=== PATIENT | male | born 1950 | race Caucasian/White ===

== ENCOUNTER 2023-03-09 16:02 | Inpatient (IN) ==
[2023-03-09 17:54] LABS: ABS Eosinophils 0.3 10^3/uL (0.0-0.5); ABS Lymphocytes 0.5 10^3/uL (1.0-4.8); ABS Neutrophils 4.5 10^3/uL (1.5-7.6); ABS Nucleated RBC 0.01 10^3/ul; Eosinophil % 4.6 %; Hematocrit 33.7 % (38-53); Hemoglobin 10.9 g/dL (13.2-16.3); Lymphocyte % 7.5 %; Mean Corpuscular Hemoglobin 30.7 pg (27-33); Mean Corpuscular Hgb Conc 32.4 g/dL (31-36); Mean Corpuscular Volume 94.6 fL (80-97); Mean Platelet Volume 8.1 fL (7.5-11.2); Nucleated Red Blood Cells % 0.1 %/100WBC (0.0-0.8); Platelet Count 377 10^3/uL (150-450); Red Blood Count 3.56 10^6/uL (4.06-5.63); White Blood Count 6.3 10^3/uL (3.6-10.2)
[2023-03-09 18:27] LABS: Albumin 3.6 g/dL (3.2-5.2); Albumin/Globulin Ratio 0.9 (1-3); C Reactive Protein 89.82 mg/L (<8.01); Calcium 9.1 mg/dL (8.6-10.3); Creatinine, Serum 1.54 mg/dL (0.67-1.17); Globulin 3.8 g/dL (2-4); Total Bilirubin 0.5 mg/dL (0.2-1.0); Total Protein 7.4 g/dL (6.4-8.9); eGFR CKD-EPI 46.8 (>60)
[2023-03-09 18:28] LABS: Potassium 4.1 mmol/L (3.5-5.0)
[2023-03-09] MEDS ORDERED: Furosemide 40 mg/4 ml IV VIAL IV SLOW PU ONE (20:18)
[2023-03-09 20:21] LABS: Magnesium 1.8 mg/dL (1.9-2.7)
[2023-03-09] MEDS ORDERED: Magnesium Sulfate 2 gm BAG 2 GM/50 ML BAG IVPB ONE (20:26)
[2023-03-09 20:47] LABS: HDL Cholesterol 49.9 mg/dL
[2023-03-09] MEDS ORDERED: Iodixanol (CONTRAST) 320 MG/ML 100 ML SDV IV ONE (21:18)
[2023-03-09] MEDS: Morphine 2 MG/ML SYRINGE IV PRN (21:52)
[2023-03-09] MEDS ORDERED: ceFAZolin 1 GM in Dextrose 1 GM/50 ML BAG IVPB SCH (22:00)
[2023-03-09 22:19] LABS: Erythrocyte Sed Rate 99 mm/Hr (0-19)
[2023-03-09 22:45] LABS: Urine Appearance Clear; Urine Bilirubin Negative (Negative); Urine Blood Negative (Negative); Urine Color Yellow; Urine Glucose Negative (Negative); Urine Ketones Negative (Negative); Urine Nitrite Negative (Negative); Urine Protein 1+(30 mg/dL) (Negative); Urine Specific Gravity 1.013 (1.002-1.030); Urine Urobilinogen Negative (Negative)
[2023-03-09 22:53] LABS: Urine Bacteria Absent (Absent); Urine Red Blood Cell Trace(0-2/hpf) (Absent); Urine White Blood Cell 1+(6-10/hpf) (Absent)
[2023-03-09] MEDS: ceFAZolin 1 GM Q8H (ADVAN) IVPB SCH (23:13)
[2023-03-10 01:38] LABS: Ferritin 58.1 ng/mL (24-336)
[2023-03-10 01:42] LABS: Folate 10.99 ng/mL (5.90-24.80)
[2023-03-10] MEDS: Morphine 2 MG/ML SYRINGE IV PRN ×6 (02:00→23:45)
[2023-03-10] MEDS ORDERED: Ferric Gluconate IV 250 MG in NS 0.9% 250 ml 200 ML IVPB ONE (06:11)
[2023-03-10] MEDS: ceFAZolin 1 GM Q8H (ADVAN) IVPB SCH ×4 (06:40→23:45)
[2023-03-10] MEDS ORDERED: Furosemide 40 mg/4 ml IV VIAL IV ONE (08:31)
[2023-03-10 09:00] LABS: ABS Basophils 0.1 10^3/uL (0.0-0.1); ABS Eosinophils 0.2 10^3/uL (0.0-0.5); ABS Lymphocytes 0.4 10^3/uL (1.0-4.8); ABS Monocytes 1.3 10^3/uL (0.0-1.1); ABS Neutrophils 4.8 10^3/uL (1.5-7.6); Eosinophil % 3.2 %; Hematocrit 34.2 % (38-53); Hemoglobin 11.3 g/dL (13.2-16.3); Mean Corpuscular Hgb Conc 32.9 g/dL (31-36); Nucleated Red Blood Cells % 0.1 %/100WBC (0.0-0.8); Platelet Count 398 10^3/uL (150-450); Red Blood Count 3.64 10^6/uL (4.06-5.63); Red Cell Distribution Width 17.3 % (12-17); White Blood Count 6.8 10^3/uL (3.6-10.2)
[2023-03-10 09:17] LABS: Creatinine, Serum 1.81 mg/dL (0.67-1.17); Potassium 4.2 mmol/L (3.5-5.0); eGFR CKD-EPI 38.5 (>60)
[2023-03-10] MEDS ORDERED: Furosemide 40 mg/4 ml IV VIAL IV SLOW PU ONE ×2 (10:18→16:50)
[2023-03-10] MEDS ORDERED: Sulfur Hexaflouride MICROSPHR 25 MG VIAL ONE (10:38)
[2023-03-11] MEDS: Morphine 2 MG/ML SYRINGE IV PRN ×5 (05:02→23:01)
[2023-03-11 07:06] LABS: ABS Eosinophils 0.2 10^3/uL (0.0-0.5); ABS Lymphocytes 0.4 10^3/uL (1.0-4.8); ABS Monocytes 1.2 10^3/uL (0.0-1.1); ABS Neutrophils 5.1 10^3/uL (1.5-7.6); Eosinophil % 3.1 %; Hematocrit 32.5 % (38-53); Hemoglobin 10.7 g/dL (13.2-16.3); Lymphocyte % 5.5 %; Mean Corpuscular Hemoglobin 30.9 pg (27-33); Mean Corpuscular Hgb Conc 32.8 g/dL (31-36); Nucleated Red Blood Cells % 0.1 %/100WBC (0.0-0.8); Platelet Count 360 10^3/uL (150-450); Red Blood Count 3.46 10^6/uL (4.06-5.63); Red Cell Distribution Width 16.9 % (12-17); White Blood Count 6.9 10^3/uL (3.6-10.2)
[2023-03-11 07:55] LABS: Calcium 9.2 mg/dL (8.6-10.3); Creatinine, Serum 1.7 mg/dL (0.67-1.17); Magnesium 1.8 mg/dL (1.9-2.7); Potassium 3.8 mmol/L (3.5-5.0); eGFR CKD-EPI 41.5 (>60)
[2023-03-11] MEDS ORDERED: Furosemide 40 mg/4 ml IV VIAL IV ONE (07:57)
[2023-03-11] MEDS ORDERED: Potassium Chlor 20 meq TAB.ER PO ONE (07:58)
[2023-03-11] MEDS ORDERED: Magnesium Sulfate 2 gm BAG 2 GM/50 ML BAG IVPB ONE (07:58)
[2023-03-11] MEDS: ceFAZolin 1 GM Q8H (ADVAN) IVPB SCH ×3 (08:35→23:01)
[2023-03-11] MEDS ORDERED: Furosemide 40 mg/4 ml IV VIAL IV SLOW PU ONE ×2 (14:00→16:20)
[2023-03-12] MEDS: Morphine 2 MG/ML SYRINGE IV PRN ×4 (07:35→23:17)
[2023-03-12 07:45] LABS: ABS Eosinophils 0.3 10^3/uL (0.0-0.5); ABS Lymphocytes 0.5 10^3/uL (1.0-4.8); ABS Monocytes 1.2 10^3/uL (0.0-1.1); ABS Neutrophils 4.3 10^3/uL (1.5-7.6); ABS Nucleated RBC 0.01 10^3/ul; Eosinophil % 4.1 %; Hematocrit 33.4 % (38-53); Hemoglobin 10.9 g/dL (13.2-16.3); Lymphocyte % 7.3 %; Mean Corpuscular Hemoglobin 30.6 pg (27-33); Mean Corpuscular Hgb Conc 32.5 g/dL (31-36); Mean Corpuscular Volume 94.2 fL (80-97); Mean Platelet Volume 8.4 fL (7.5-11.2); Nucleated Red Blood Cells % 0.1 %/100WBC (0.0-0.8); Platelet Count 335 10^3/uL (150-450); Red Blood Count 3.55 10^6/uL (4.06-5.63); Red Cell Distribution Width 16.8 % (12-17); White Blood Count 6.3 10^3/uL (3.6-10.2)
[2023-03-12 08:04] LABS: Calcium 9.3 mg/dL (8.6-10.3); Creatinine, Serum 1.87 mg/dL (0.67-1.17); Magnesium 2.2 mg/dL (1.9-2.7); Potassium 3.8 mmol/L (3.5-5.0)
[2023-03-12] MEDS: ceFAZolin 1 GM Q8H (ADVAN) IVPB SCH ×3 (08:22→23:26)
[2023-03-12] MEDS ORDERED: Potassium Chlor 20 meq TAB.ER PO ONE (08:31)
[2023-03-12] MEDS ORDERED: Furosemide 40 mg/4 ml IV VIAL IV SLOW PU ONE ×3 (11:57→17:35)
[2023-03-12 16:51] LABS: Calcium 9.4 mg/dL (8.6-10.3); Creatinine, Serum 1.85 mg/dL (0.67-1.17); Potassium 4.5 mmol/L (3.5-5.0); eGFR CKD-EPI 37.5 (>60)
[2023-03-13 06:23] LABS: ABS Eosinophils 0.2 10^3/uL (0.0-0.5); ABS Lymphocytes 0.4 10^3/uL (1.0-4.8); ABS Monocytes 1.1 10^3/uL (0.0-1.1); ABS Neutrophils 3.9 10^3/uL (1.5-7.6); Eosinophil % 4.3 %; Hemoglobin 10.6 g/dL (13.2-16.3); Lymphocyte % 7.4 %; Mean Corpuscular Hemoglobin 30.8 pg (27-33); Mean Corpuscular Volume 93.3 fL (80-97); Mean Platelet Volume 8.3 fL (7.5-11.2); Nucleated Red Blood Cells % 0.1 %/100WBC (0.0-0.8); Platelet Count 375 10^3/uL (150-450); Red Blood Count 3.43 10^6/uL (4.06-5.63); Red Cell Distribution Width 16.8 % (12-17); White Blood Count 5.8 10^3/uL (3.6-10.2)
[2023-03-13 06:40] LABS: Calcium 9.2 mg/dL (8.6-10.3); Creatinine, Serum 2.05 mg/dL (0.67-1.17); Potassium 3.8 mmol/L (3.5-5.0); eGFR CKD-EPI 33.2 (>60)
[2023-03-13] MEDS ORDERED: Bumetanide IV 0.25 MG/ML 4 ml VIAL (1 mg) IV SLOW PU SCH (09:00)
[2023-03-13] MEDS: ceFAZolin 1 GM Q8H (ADVAN) IVPB SCH ×3 (09:24→23:18)
[2023-03-13] MEDS: Morphine 2 MG/ML SYRINGE IV PRN ×3 (10:58→23:18)
[2023-03-13] MEDS ORDERED: Senna TAB 8.6 mg TAB PO PRN (12:07)
[2023-03-13] MEDS ORDERED: Magnesium Hydroxide LIQ 30 ML UDC PO PRN (12:07)
[2023-03-13] MEDS ORDERED: Polyethylene Glycol 3350 17 GM PACKET PO PRN (12:07)
[2023-03-13] MEDS: Magnesium Hydroxide LIQ 30 ML UDC PO SCH (20:15)
[2023-03-14 05:50] LABS: Hemoglobin 10.2 g/dL (13.2-16.3); Mean Corpuscular Hemoglobin 30.5 pg (27-33); Mean Corpuscular Hgb Conc 32.7 g/dL (31-36); Mean Corpuscular Volume 93.2 fL (80-97); Mean Platelet Volume 7.8 fL (7.5-11.2); Platelet Count 391 10^3/uL (150-450); Red Blood Count 3.33 10^6/uL (4.06-5.63); Red Cell Distribution Width 16.7 % (12-17); White Blood Count 6.1 10^3/uL (3.6-10.2)
[2023-03-14 06:10] LABS: Calcium 9.3 mg/dL (8.6-10.3); Creatinine, Serum 2.05 mg/dL (0.67-1.17); Potassium 3.8 mmol/L (3.5-5.0); eGFR CKD-EPI 33.2 (>60)
[2023-03-14] MEDS: ceFAZolin 1 GM Q8H (ADVAN) IVPB SCH ×2 (08:59→17:15)
[2023-03-14] MEDS: Magnesium Hydroxide LIQ 30 ML UDC PO SCH ×2 (09:00→21:09)
[2023-03-14] MEDS: Morphine 2 MG/ML SYRINGE IV PRN (21:09)
[2023-03-14] MEDS: Bumetanide IV 0.25 MG/ML 4 ml VIAL (1 mg) IV SLOW PU SCH (21:09)
[2023-03-15] MEDS: ceFAZolin 1 GM Q8H (ADVAN) IVPB SCH ×2 (01:07→07:36)
[2023-03-15] MEDS: Morphine 2 MG/ML SYRINGE IV PRN ×3 (01:08→15:10)
[2023-03-15 06:51] LABS: ABS Eosinophils 0.2 10^3/uL (0.0-0.5); ABS Lymphocytes 0.4 10^3/uL (1.0-4.8); ABS Neutrophils 4.8 10^3/uL (1.5-7.6); Eosinophil % 3.5 %; Hematocrit 32.2 % (38-53); Hemoglobin 10.7 g/dL (13.2-16.3); Lymphocyte % 5.5 %; Mean Corpuscular Hemoglobin 30.9 pg (27-33); Mean Corpuscular Hgb Conc 33.1 g/dL (31-36); Mean Corpuscular Volume 93.3 fL (80-97); Mean Platelet Volume 8.1 fL (7.5-11.2); Platelet Count 386 10^3/uL (150-450); Red Blood Count 3.45 10^6/uL (4.06-5.63); Red Cell Distribution Width 16.7 % (12-17); White Blood Count 6.5 10^3/uL (3.6-10.2)
[2023-03-15] MEDS: Bumetanide IV 0.25 MG/ML 4 ml VIAL (1 mg) IV SLOW PU SCH ×2 (07:30→21:45)
[2023-03-15 07:35] LABS: Calcium 9.4 mg/dL (8.6-10.3); Creatinine, Serum 2.09 mg/dL (0.67-1.17); Magnesium 2.2 mg/dL (1.9-2.7); Potassium 3.7 mmol/L (3.5-5.0); eGFR CKD-EPI 32.4 (>60)
[2023-03-15] MEDS: Magnesium Hydroxide LIQ 30 ML UDC PO SCH ×2 (07:35→21:45)
[2023-03-15] MEDS: ceFAZolin 1 GM in Dextrose 1 GM/50 ML BAG IVPB SCH (16:12)
[2023-03-16] MEDS: ceFAZolin 1 GM in Dextrose 1 GM/50 ML BAG IVPB SCH ×3 (00:35→16:28)
[2023-03-16 05:59] LABS: Hemoglobin 10.6 g/dL (13.2-16.3); Mean Corpuscular Hemoglobin 30.7 pg (27-33); Mean Corpuscular Volume 93.1 fL (80-97); Mean Platelet Volume 7.8 fL (7.5-11.2); Platelet Count 406 10^3/uL (150-450); Red Blood Count 3.44 10^6/uL (4.06-5.63); Red Cell Distribution Width 16.7 % (12-17); White Blood Count 7.8 10^3/uL (3.6-10.2)
[2023-03-16 06:47] LABS: Calcium 9.5 mg/dL (8.6-10.3); Creatinine, Serum 2.25 mg/dL (0.67-1.17); Magnesium 2.3 mg/dL (1.9-2.7); Potassium 3.6 mmol/L (3.5-5.0); eGFR CKD-EPI 29.7 (>60)
[2023-03-16] MEDS: Magnesium Hydroxide LIQ 30 ML UDC PO SCH ×2 (08:24→20:26)
[2023-03-16] MEDS: Bumetanide IV 0.25 MG/ML 4 ml VIAL (1 mg) IV SLOW PU SCH ×2 (08:24→20:26)
[2023-03-16 16:55] LABS: Myeloperoxidase Antibody <0.2 U; Proteinase 3 <0.2 U
[2023-03-17 06:22] LABS: ABS Eosinophils 0.2 10^3/uL (0.0-0.5); ABS Lymphocytes 0.5 10^3/uL (1.0-4.8); ABS Monocytes 1.2 10^3/uL (0.0-1.1); ABS Neutrophils 5.6 10^3/uL (1.5-7.6); ABS Nucleated RBC 0.01 10^3/ul; Eosinophil % 3.2 %; Hematocrit 32.1 % (38-53); Hemoglobin 10.7 g/dL (13.2-16.3); Lymphocyte % 6.2 %; Mean Corpuscular Hemoglobin 30.9 pg (27-33); Mean Corpuscular Hgb Conc 33.3 g/dL (31-36); Mean Corpuscular Volume 92.7 fL (80-97); Mean Platelet Volume 7.9 fL (7.5-11.2); Nucleated Red Blood Cells % 0.2 %/100WBC (0.0-0.8); Platelet Count 402 10^3/uL (150-450); Red Blood Count 3.46 10^6/uL (4.06-5.63); Red Cell Distribution Width 16.5 % (12-17); White Blood Count 7.6 10^3/uL (3.6-10.2)
[2023-03-17 06:43] LABS: Anion Gap 12 mmol/L (2-16); Blood Urea Nitrogen 41 mg/dL (6-24); C Reactive Protein 115.55 mg/L (<8.01); CO2 Carbon Dioxide 33 mmol/L (22-32); Calcium 9.4 mg/dL (8.6-10.3); Chloride 88 mmol/L (101-111); Creatinine, Serum 2.33 mg/dL (0.67-1.17); Glucose 91 mg/dL (70-100); Potassium 3.2 mmol/L (3.5-5.0); Sodium 133 mmol/L (135-145); eGFR CKD-EPI 28.4 (>60)
[2023-03-17 06:45] LABS: ALT < 3 U/L (7-52); AST 13 U/L (13-39); Albumin 3.4 g/dL (3.2-5.2); Albumin/Globulin Ratio 0.8 (1-3); Alkaline Phosphatase 125 U/L (35-149); Globulin 4.3 g/dL (2-4); Magnesium 2.3 mg/dL (1.9-2.7); Total Bilirubin 0.5 mg/dL (0.2-1.0); Total Protein 7.7 g/dL (6.4-8.9)
[2023-03-17] MEDS ORDERED: Potassium Chlor 20 meq TAB.ER PO ONE ×2 (07:49→21:00)
[2023-03-17] MEDS: Bumetanide IV 0.25 MG/ML 4 ml VIAL (1 mg) IV SLOW PU SCH ×2 (08:25→20:29)
[2023-03-17] MEDS: Magnesium Hydroxide LIQ 30 ML UDC PO SCH ×2 (08:26→20:29)
[2023-03-17 09:54] LABS: Albumin 2.7 g/dL (3.4-4.7); Flag, M-protein Isotype Negative (Negative)
[2023-03-18 06:00] LABS: ABS Eosinophils 0.3 10^3/uL (0.0-0.5); ABS Lymphocytes 0.4 10^3/uL (1.0-4.8); ABS Monocytes 1.2 10^3/uL (0.0-1.1); ABS Neutrophils 5.8 10^3/uL (1.5-7.6); ABS Nucleated RBC 0.02 10^3/ul; Eosinophil % 3.3 %; Hematocrit 32.2 % (38-53); Hemoglobin 10.7 g/dL (13.2-16.3); Lymphocyte % 5.6 %; Mean Corpuscular Hemoglobin 30.8 pg (27-33); Mean Corpuscular Hgb Conc 33.2 g/dL (31-36); Mean Corpuscular Volume 92.7 fL (80-97); Mean Platelet Volume 8.1 fL (7.5-11.2); Nucleated Red Blood Cells % 0.3 %/100WBC (0.0-0.8); Platelet Count 390 10^3/uL (150-450); Red Blood Count 3.48 10^6/uL (4.06-5.63); Red Cell Distribution Width 16.3 % (12-17); White Blood Count 7.8 10^3/uL (3.6-10.2)
[2023-03-18 06:18] LABS: Calcium 9.5 mg/dL (8.6-10.3); Creatinine, Serum 2.46 mg/dL (0.67-1.17); Magnesium 2.3 mg/dL (1.9-2.7); Potassium 3.5 mmol/L (3.5-5.0); eGFR CKD-EPI 26.6 (>60)
[2023-03-18] MEDS ORDERED: Potassium Chlor 20 meq TAB.ER PO ONE (06:58)
[2023-03-18] MEDS ORDERED: Bumetanide IV 0.25 MG/ML 4 ml VIAL (1 mg) IV SLOW PU ONE ×2 (09:14→14:13)
[2023-03-18] MEDS: Bumetanide IV 0.25 MG/ML 4 ml VIAL (1 mg) IV SLOW PU SCH ×2 (11:44→20:34)
[2023-03-18 15:23] LABS: NT-Pro B-Type Natriuretic Pep 195 pg/mL (<=540)
[2023-03-18 15:25] LABS: Kappa Free Light Chain 12.8 mg/dL; Lambda Free Light Chain, S 10.1 mg/dL
[2023-03-19 07:12] LABS: ABS Eosinophils 0.3 10^3/uL (0.0-0.5); ABS Lymphocytes 0.6 10^3/uL (1.0-4.8); ABS Monocytes 1.1 10^3/uL (0.0-1.1); ABS Neutrophils 5.6 10^3/uL (1.5-7.6); ABS Nucleated RBC 0.01 10^3/ul; Eosinophil % 4.4 %; Hematocrit 32.2 % (38-53); Hemoglobin 10.4 g/dL (13.2-16.3); Lymphocyte % 7.3 %; Mean Corpuscular Hemoglobin 29.9 pg (27-33); Mean Corpuscular Hgb Conc 32.3 g/dL (31-36); Mean Corpuscular Volume 92.6 fL (80-97); Mean Platelet Volume 8.3 fL (7.5-11.2); Nucleated Red Blood Cells % 0.1 %/100WBC (0.0-0.8); Platelet Count 391 10^3/uL (150-450); Red Blood Count 3.47 10^6/uL (4.06-5.63); Red Cell Distribution Width 16.1 % (12-17); White Blood Count 7.6 10^3/uL (3.6-10.2)
[2023-03-19 07:35] LABS: Anion Gap 13 mmol/L (2-16); Blood Urea Nitrogen 51 mg/dL (6-24); CO2 Carbon Dioxide 34 mmol/L (22-32); Calcium 9.7 mg/dL (8.6-10.3); Chloride 87 mmol/L (101-111); Creatinine, Serum 2.57 mg/dL (0.67-1.17); Glucose 90 mg/dL (70-100); Potassium 3.4 mmol/L (3.5-5.0); Sodium 134 mmol/L (135-145); eGFR CKD-EPI 25.3 (>60)
[2023-03-19 07:37] LABS: ALT < 3 U/L (7-52); AST 14 U/L (13-39); Albumin 3.5 g/dL (3.2-5.2); Albumin/Globulin Ratio 0.8 (1-3); Alkaline Phosphatase 124 U/L (35-149); Globulin 4.5 g/dL (2-4); Magnesium 2.1 mg/dL (1.9-2.7); Phosphorus 3.6 mg/dL (2.5-5.0); Total Bilirubin 0.6 mg/dL (0.2-1.0)
[2023-03-19] MEDS ORDERED: Potassium Chlor 20 meq TAB.ER PO ONE ×2 (07:40→21:00)
[2023-03-19] MEDS ORDERED: Oxymetazoline 0.05% NASAL SPR 15 ML BTL BOTH NARES PRN (10:33)
[2023-03-19] MEDS: Bumetanide IV 0.25 MG/ML 4 ml VIAL (1 mg) IV SLOW PU SCH ×2 (11:16→21:41)
[2023-03-19 11:30] LABS: Urine Appearance Clear; Urine Bilirubin Negative (Negative); Urine Blood 1+ (Negative); Urine Color Yellow; Urine Glucose Negative (Negative); Urine Ketones Negative (Negative); Urine Nitrite Negative (Negative); Urine Protein 1+(30 mg/dL) (Negative); Urine Specific Gravity 1.011 (1.002-1.030); Urine Urobilinogen Negative (Negative)
[2023-03-19 11:51] LABS: Urine Bacteria Absent (Absent); Urine Red Blood Cell Trace(0-2/hpf) (Absent); Urine Transitional Epithelial Present (Absent); Urine White Blood Cell 1+(6-10/hpf) (Absent)
[2023-03-20 06:25] LABS: ABS Lymphocytes 0.4 10^3/uL (1.0-4.8); ABS Monocytes 0.1 10^3/uL (0.0-1.1); ABS Neutrophils 5.6 10^3/uL (1.5-7.6); ABS Nucleated RBC 0.01 10^3/ul; Eosinophil % 0.1 %; Hematocrit 32.6 % (38-53); Hemoglobin 10.7 g/dL (13.2-16.3); Lymphocyte % 6.3 %; Mean Corpuscular Hemoglobin 30.4 pg (27-33); Mean Corpuscular Hgb Conc 32.9 g/dL (31-36); Mean Corpuscular Volume 92.5 fL (80-97); Mean Platelet Volume 8.2 fL (7.5-11.2); Nucleated Red Blood Cells % 0.1 %/100WBC (0.0-0.8); Platelet Count 393 10^3/uL (150-450); Red Blood Count 3.53 10^6/uL (4.06-5.63); Red Cell Distribution Width 16.2 % (12-17); White Blood Count 6.2 10^3/uL (3.6-10.2)
[2023-03-20 06:42] LABS: Creatinine, Serum 2.35 mg/dL (0.67-1.17); Magnesium 2.1 mg/dL (1.9-2.7); Potassium 4.1 mmol/L (3.5-5.0); eGFR CKD-EPI 28.2 (>60)
[2023-03-20] MEDS: Bumetanide IV 0.25 MG/ML 4 ml VIAL (1 mg) IV SLOW PU SCH ×2 (09:08→20:18)
[2023-03-20 15:00] LABS: ABS Lymphocytes 0.4 10^3/uL (1.0-4.8); ABS Monocytes 0.3 10^3/uL (0.0-1.1); ABS Neutrophils 6.7 10^3/uL (1.5-7.6); Hematocrit 32.1 % (38-53); Hemoglobin 10.7 g/dL (13.2-16.3); Lymphocyte % 5.6 %; Mean Corpuscular Hemoglobin 30.8 pg (27-33); Mean Corpuscular Hgb Conc 33.5 g/dL (31-36); Mean Corpuscular Volume 92.1 fL (80-97); Platelet Count 395 10^3/uL (150-450); Red Blood Count 3.48 10^6/uL (4.06-5.63); Red Cell Distribution Width 16.2 % (12-17); White Blood Count 7.4 10^3/uL (3.6-10.2)
[2023-03-20 15:07] LABS: Activated Partial Thrombo Time 38.6 seconds (26.0-38.0); INR 1.76 (0.83-1.13)
[2023-03-20 15:14] LABS: Creatinine, Serum 2.56 mg/dL (0.67-1.17); eGFR CKD-EPI 25.4 (>60)
[2023-03-21 06:56] LABS: Calcium 9.5 mg/dL (8.6-10.3); Creatinine, Serum 2.4 mg/dL (0.67-1.17); Potassium 3.5 mmol/L (3.5-5.0); eGFR CKD-EPI 27.5 (>60)
[2023-03-21 06:57] LABS: ABS Lymphocytes 0.6 10^3/uL (1.0-4.8); ABS Monocytes 0.9 10^3/uL (0.0-1.1); ABS Neutrophils 10.1 10^3/uL (1.5-7.6); Hematocrit 31.6 % (38-53); Hemoglobin 10.5 g/dL (13.2-16.3); Mean Corpuscular Hemoglobin 30.3 pg (27-33); Mean Corpuscular Hgb Conc 33.1 g/dL (31-36); Mean Corpuscular Volume 91.7 fL (80-97); Mean Platelet Volume 8.2 fL (7.5-11.2); Platelet Count 381 10^3/uL (150-450); Red Blood Count 3.45 10^6/uL (4.06-5.63); Red Cell Distribution Width 16.6 % (12-17); White Blood Count 11.6 10^3/uL (3.6-10.2)
[2023-03-21] MEDS ORDERED: Potassium Chlor 20 meq TAB.ER PO ONE (07:09)
[2023-03-21] MEDS: Bumetanide IV 0.25 MG/ML 4 ml VIAL (1 mg) IV SLOW PU SCH ×2 (09:55→20:02)
[2023-03-21] MEDS: Heparin 5000 UNITS/ML 1 mL VIAL SUBCUT SCH ×2 (09:56→20:02)
[2023-03-21] MEDS: CMCS:diPHENhydraMINE CREAM 2%(NF) 28 gm TUBE TOPICAL SCH ×2 (14:32→20:15)
[2023-03-22 06:04] LABS: ABS Lymphocytes 0.6 10^3/uL (1.0-4.8); ABS Monocytes 0.7 10^3/uL (0.0-1.1); ABS Neutrophils 9.8 10^3/uL (1.5-7.6); Hematocrit 32.9 % (38-53); Hemoglobin 10.9 g/dL (13.2-16.3); Lymphocyte % 5.8 %; Mean Corpuscular Hemoglobin 30.4 pg (27-33); Mean Corpuscular Hgb Conc 33.1 g/dL (31-36); Mean Corpuscular Volume 91.9 fL (80-97); Mean Platelet Volume 8.3 fL (7.5-11.2); Platelet Count 397 10^3/uL (150-450); Red Blood Count 3.58 10^6/uL (4.06-5.63); Red Cell Distribution Width 16.2 % (12-17); White Blood Count 11.1 10^3/uL (3.6-10.2)
[2023-03-22 06:21] LABS: Calcium 9.6 mg/dL (8.6-10.3); Creatinine, Serum 2.27 mg/dL (0.67-1.17); Magnesium 1.8 mg/dL (1.9-2.7); Potassium 3.6 mmol/L (3.5-5.0); eGFR CKD-EPI 29.3 (>60)
[2023-03-22] MEDS ORDERED: Magnesium Sulfate 2 gm BAG 2 GM/50 ML BAG IVPB ONE (06:43)
[2023-03-22] MEDS: Bumetanide IV 0.25 MG/ML 4 ml VIAL (1 mg) IV SLOW PU SCH ×2 (08:00→20:03)
[2023-03-22] MEDS: Heparin 5000 UNITS/ML 1 mL VIAL SUBCUT SCH (08:01)
[2023-03-22] MEDS: CMCS:diPHENhydraMINE CREAM 2%(NF) 28 gm TUBE TOPICAL SCH ×3 (08:17→20:19)
[2023-03-23 06:34] LABS: Calcium 9.7 mg/dL (8.6-10.3); Creatinine, Serum 2.06 mg/dL (0.67-1.17); Magnesium 2.2 mg/dL (1.9-2.7); Potassium 3.4 mmol/L (3.5-5.0)
[2023-03-23] MEDS: CMCS:diPHENhydraMINE CREAM 2%(NF) 28 gm TUBE TOPICAL SCH ×2 (08:37→14:56)
[2023-03-23] MEDS: Bumetanide IV 0.25 MG/ML 4 ml VIAL (1 mg) IV SLOW PU SCH (08:38)
[2023-03-23 15:38] VITALS: BP 155/82
== END 2023-03-23 16:40 | disposition home or self-care (01) | DRG 291 ==
LOC: ED 16:02 → EDHOLD 16:02 → SUATTDRO 20:15 → MEDTELE 03-10 13:47 → SUATTDRO 03-11 14:11
PROVIDERS: ADMIT Student in an Organized Health Care Education/Training Program; ATTEND Internal Medicine